=== PATIENT | female | born 1935 | race Caucasian/White ===

== ENCOUNTER 2019-08-17 09:09 | Outpatient (REF) | payer MEDICARE, BC, SELFPAY ==
[2019-08-17 21:22] LABS: Glucose 107 mg/dL (74-106)
== END 2019-08-17 09:29 ==
LOC: NCHCN 09:09
PROVIDERS: PCP Nurse Practitioner Family; Visit Provider Nurse Practitioner Family
DX: R73.09 Other abnormal glucose (principal)
CPT/HCPCS: 82947

== ENCOUNTER 2021-10-25 16:24 | Outpatient (REF) | payer MEDICARE, SELFPAY ==
[2021-10-25 16:39] LABS: HCT 40.9 % (36.0-46.0); HGB 13.1 g/dL (11.2-15.7); MCH 31.2 pg (27.0-33.0); MCV 97.4 fL (80-95); MPV 11.4 fL (8.0-11.0); Platelet Count 263 10^3/uL (130-400); RDW-SD 46.4 fL; WBC 4.64 10^3/uL (4.4-10.8)
[2021-10-25 16:58] LABS: Iron 116 ug/dL (50-170); Total Iron Binding Capacity 227 ug/dL (250-450); Transferrin Sat 51 % (15-50)
[2021-10-25 17:01] LABS: Hemoglobin A1C 6.2 % (<5.7)
[2021-10-25 17:18] LABS: Anion Gap 6.7 mmol/L (3-11); BUN 24 mg/dL (7-18); CO2 27.3 mmol/L (21.0-32.0); CREATININE 0.9 mg/dL (0.55-1.02); Calcium 9.1 mg/dL (8.5-10.1); Chloride 108 mmol/L (98-107); Estimated GFR 59.65 (mL/min/1.73m2); Glucose 151 mg/dL (74-106); Potassium 4.4 mmol/L (3.5-5.1); Sodium 142 mmol/L (136-145); Vitamin B12 243 pg/mL (193-986)
[2021-10-25 17:49] LABS: Folate > 20.0 ng/mL (8.6-20.0)
== END 2021-10-25 16:25 | disposition home or self-care (01) ==
LOC: NCHCN 16:24
PROVIDERS: PCP Nurse Practitioner Family; Visit Provider Nurse Practitioner Family
DX: Z00.00 Encounter for general adult medical examination without abnormal findings (principal); R73.03 Prediabetes; R03.0 Elevated blood-pressure reading, without diagnosis of hypertension; K52.9 Noninfective gastroenteritis and colitis, unspecified; E53.8 Deficiency of other specified B group vitamins; Z86.2 Personal history of diseases of the blood and blood-forming organs and certain disorders involving the immune mechanism
CPT/HCPCS: 80048; 85027; 82607; 82746; 83036; 83540; 83550

== ENCOUNTER 2022-11-04 11:15 | Outpatient (REF) | payer MEDICARE, SELFPAY ==
[2022-11-04 16:18] LABS: Anion Gap 6.7 mmol/L (3-11); BUN 13 mg/dL (7-18); CO2 29.3 mmol/L (21.0-32.0); CREATININE 0.8 mg/dL (0.55-1.02); Calcium 9.4 mg/dL (8.5-10.1); Chloride 108 mmol/L (98-107); Estimated GFR 72.16 (mL/min/1.73m2); Glucose 111 mg/dL (74-106); Potassium 4.2 mmol/L (3.5-5.1); Sodium 144 mmol/L (136-145); Vitamin B12 1330 pg/mL (193-986)
== END 2022-11-04 11:16 | disposition home or self-care (01) ==
LOC: NCHCN 11:15
PROVIDERS: PCP Nurse Practitioner Family; Visit Provider Nurse Practitioner Family
DX: R73.03 Prediabetes (principal); E53.8 Deficiency of other specified B group vitamins
CPT/HCPCS: 80048; 82607; 83036

== ENCOUNTER 2023-02-24 12:59 | Outpatient (REF) | payer MEDICARE, SELFPAY ==
[2023-02-24 16:12] LABS: Vitamin D 25 Total 61.4 ng/mL (30-100)
== END 2023-02-24 13:00 | disposition home or self-care (01) ==
LOC: NCHCN 12:59
PROVIDERS: PCP Nurse Practitioner Family; Visit Provider Nurse Practitioner Family
DX: M85.88 Other specified disorders of bone density and structure, other site (principal)
CPT/HCPCS: 82306

== ENCOUNTER 2023-11-11 14:51 | Outpatient (REF) | payer MEDICARE, SELFPAY ==
[2023-11-11 17:31] LABS: Anion Gap 8.2 mmol/L (3-11); BUN 18 mg/dL (7-18); CO2 26.8 mmol/L (21.0-32.0); CREATININE 0.9 mg/dL (0.55-1.02); Calcium 8.9 mg/dL (8.5-10.1); Chloride 108 mmol/L (98-107); Estimated GFR 62.26 (mL/min/1.73m2); Glucose 107 mg/dL (74-106); Potassium 4.2 mmol/L (3.5-5.1); Sodium 143 mmol/L (136-145); TSH 1.88 uIU/Ml (0.36-3.74); Vitamin B12 1132 pg/mL (193-986)
== END 2023-11-11 14:52 | disposition home or self-care (01) ==
LOC: NCHCN 14:51
PROVIDERS: PCP Nurse Practitioner Family; Visit Provider Nurse Practitioner Family
DX: R73.03 Prediabetes (principal)
CPT/HCPCS: 80048; 82607; 83036; 84443

== ENCOUNTER 2024-05-12 22:24 | Outpatient (REF) | payer MEDICARE, SELFPAY ==
[2024-05-12 21:20] LABS: Abs Immature Grans 0.01 10^3/uL (0.0-0.06); Absolute Basophil Count 0.07 10^3/uL (0.0-0.2); Absolute Eosinophil Count 0.15 10^3/uL (0.0-0.7); Absolute Neutrophil Count 2.58 10^3/uL (1.2-6.7); Basophils % 1.6 %; Eosinophils % 3.4 %; HCT 38.1 % (36.0-46.0); HGB 12.4 g/dL (11.2-15.7); Immature Grans % 0.2 %; Lymphocytes % 29.5 %; MCH 31.3 pg (27.0-33.0); MCHC 32.5 % (32.0-36.0); MCV 96 fL (80-95); MPV 10.8 fL (8.0-11.0); Monocytes % 6.8 %; Neutrophils % 58.5 %; Platelet Count 240 10^3/uL (130-400); RBC 3.96 10^6/uL (3.93-5.22); RDW 12.5 % (11.7-14.6); RDW-SD 44.5 fL; WBC 4.41 10^3/uL (4.4-10.8)
[2024-05-12 22:08] LABS: ALT 19 U/L (14-59); AST 20 U/L (15-37); Albumin 3.4 g/dL (3.4-5.0); Alkaline Phosphatase 67 U/L (46-116); Anion Gap 7.3 mmol/L (3-11); BUN 24 mg/dL (7-18); Bilirubin, Total 0.45 mg/dL (0.2-1.0); CO2 24.7 mmol/L (21.0-32.0); Calcium 8.9 mg/dL (8.5-10.1); Chloride 107 mmol/L (98-107); Estimated GFR 54.53 (mL/min/1.73m2); Folate > 20.0 ng/mL (8.6-20.0); Glucose 157 mg/dL (74-106); Potassium 4.3 mmol/L (3.5-5.1); Sodium 139 mmol/L (136-145); TSH (W/Ref FT4) 1.58 uIU/mL (0.36-3.74); Total Protein 6.4 g/dL (6.4-8.2); Vitamin B12 835 pg/mL (193-986)
== END 2024-05-12 22:25 | disposition home or self-care (01) ==
LOC: NCHCN 22:24
PROVIDERS: PCP Nurse Practitioner Family; Visit Provider Nurse Practitioner Family
DX: R41.89 Other symptoms and signs involving cognitive functions and awareness (principal)
CPT/HCPCS: 80053; 82607; 82746; 84443; 85025